=== PATIENT | female | born 1985 | race Caucasian/White ===

== ENCOUNTER 2021-11-28 05:30 | Inpatient (IN) | payer BC ==
[2021-11-28] MEDS: Lactated Ringer's 1,000 ML IV SCH (07:25)
[2021-11-28] MEDS ORDERED: Diphenoxylate HCl/Atropine Tablet PO PRN (07:46)
[2021-11-28] MEDS ORDERED: Ibuprofen 800 MG TAB PO PRN (07:46)
[2021-11-28] MEDS ORDERED: Misoprostol 200 MCG TAB PR PRN (07:46)
[2021-11-28] MEDS ORDERED: HYDROcodone/Acetaminophen 5/325 mg Tablet PO PRN ×2 (07:46)
[2021-11-28] MEDS ORDERED: Methylergonovine 0.2 MG/ML VIAL IM PRN (07:46)
[2021-11-28] MEDS ORDERED: Butorphanol Tartrate 1 MG/ML VIAL SLOW IVP PRN (07:46)
[2021-11-28] MEDS ORDERED: Promethazine HCl 25 MG/ML VIAL IM PRN ×2 (07:46→20:32)
[2021-11-28] MEDS ORDERED: hydrALAZINE 20 MG/ML VIAL SLOW IVP PRN (07:46)
[2021-11-28] MEDS ORDERED: Ondansetron PF 4 MG/2 ML Vial IVP PRN ×2 (07:46→20:32)
[2021-11-28] MEDS ORDERED: Lidocaine 1% (PF) 30 ML VIAL SC PRN (07:46)
[2021-11-28] MEDS ORDERED: Acetaminophen 500 MG TAB PO PRN (07:46)
[2021-11-28 07:59] LABS: Hemoglobin 10.5 g/dL (12.0-15.5); Mean Corpuscular HGB CONC 33.5 g/dL (32.0-36.0); Mean Corpuscular Hemoglobin 29.7 pg (27.0-33.0); Mean Corpuscular Volume 88.4 fl (81.6-98.3); Mean Platelet Volume 12.4 fl (7.4-10.4); Platelet Count 208 10x3/uL (150-450); Red Blood Cell (RBC) Count 3.54 10x6/uL (3.90-5.03); White Blood Cell (WBC) Count 6.7 10x3/uL (3.5-10.5)
[2021-11-28] MEDS ORDERED: NS w/ Oxytocin 30 units 500 ML IV SCH ×2 (08:00)
[2021-11-28] MEDS ORDERED: Bupivacaine 0.25% HCL 30 ML VIAL ONE (08:00)
[2021-11-28] MEDS ORDERED: Misoprostol 100 MCG TAB VAG SCH (08:00)
[2021-11-28 08:27] LABS: HBSAg Index 0.18 S/CO (0-0.99); Hep B Surf Ag Non-Reactive S/CO (NonReactive)
[2021-11-28] MEDS: Misoprostol 100 MCG TAB VAG SCH ×3 (09:59→17:40)
[2021-11-28 13:10] LABS: Syphilis Antibody INDETERMINATE (Nonreactive)
[2021-11-28 18:22] LABS: Glucose 75 mg/dL (70-105)
[2021-11-28] MEDS ORDERED: Fentanyl 2 mcg/Bup 0.1% Cadd 100 ML ONE (20:30)
[2021-11-28] MEDS ORDERED: Moisturizing Cream (Eucerin) 113 GM JAR TOP PRN (20:32)
[2021-11-28] MEDS ORDERED: Lactated Ringer's 500 ML IV PRN (20:32)
[2021-11-28] MEDS ORDERED: Naloxone HCl 0.4 mg/ml Vial IVP PRN ×2 (20:32)
[2021-11-28] MEDS ORDERED: Acetaminophen 325 MG TAB PO PRN (20:32)
[2021-11-28] MEDS ORDERED: diphenhydrAMINE 50 MG/ML VIAL IVP PRN (20:32)
[2021-11-28] MEDS ORDERED: ePHEDrine Sulfate 50 MG/10 ML VIAL SLOW IVP PRN (20:32)
[2021-11-28] MEDS ORDERED: Communication Order-Pharmacy FS SCH (20:45)
[2021-11-28] MEDS: Fentanyl 2 mcg/Bupivacaine 0.1% Cassette 100 ML EPIDURAL SCH (20:50)
[2021-11-29] MEDS: Fentanyl 2 mcg/Bupivacaine 0.1% Cassette 100 ML EPIDURAL SCH ×2 (05:51→13:26)
[2021-11-29] MEDS ORDERED: Fentanyl 2 mcg/Bup 0.1% Cadd 100 ML ONE (13:27)
[2021-11-29] MEDS: Lactated Ringer's 1,000 ML IV SCH ×2 (15:22→23:22)
[2021-11-29] MEDS ORDERED: Misoprostol 200 MCG TAB VAG PRN (19:42)
[2021-11-29] MEDS ORDERED: Methylergonovine 0.2 MG/ML VIAL IM PRN (19:42)
[2021-11-29] MEDS ORDERED: Milk Of Magnesia 30 ML UDCUP PO PRN (19:42)
[2021-11-29] MEDS ORDERED: Ondansetron PF 4 MG/2 ML Vial IVP PRN (19:42)
[2021-11-29] MEDS ORDERED: Lanolin Ointment 7 GM TUBE TOP PRN (19:42)
[2021-11-29] MEDS ORDERED: HYDROcodone/Acetaminophen 5/325 mg Tablet PO PRN (19:42)
[2021-11-29] MEDS ORDERED: NS w/ Oxytocin 30 units 500 ML IV SCH (19:42)
[2021-11-29] MEDS ORDERED: Benzocaine-Menthol 82.5 ML CAN TOP PRN (19:42)
[2021-11-29] MEDS ORDERED: Bisacodyl 10 MG SUPP PR PRN (19:42)
[2021-11-29] MEDS ORDERED: hydrALAZINE 20 MG/ML VIAL SLOW IVP PRN (19:42)
[2021-11-29] MEDS: Ibuprofen 800 MG TAB PO SCH (20:00)
[2021-11-29] MEDS: HYDROcodone/Acetaminophen 5/325 mg Tablet PO PRN (23:19)
[2021-11-29] MEDS: Docusate 100 MG CAP PO SCH (23:20)
[2021-11-30] MEDS: Misoprostol 100 MCG TAB VAG SCH ×3 (00:58→01:00)
[2021-11-30] MEDS: Ibuprofen 800 MG TAB PO SCH ×2 (05:09→13:43)
[2021-11-30] MEDS: Docusate 100 MG CAP PO SCH (08:46)
[2021-11-30] MEDS: Ferrous Sulfate 325 MG TAB PO SCH ×2 (08:47→18:19)
[2021-11-30] MEDS ORDERED: Prenatal Vitamin 1 TAB PO SCH (09:00)
[2021-11-30] MEDS: HYDROcodone/Acetaminophen 5/325 mg Tablet PO PRN ×2 (09:58→15:42)
[2021-11-30 17:32] VITALS: BP 131/87; TEMP 98.4
== END 2021-11-30 19:10 | disposition home or self-care (01) | DRG 807 ==
LOC: CSHLD 05:53 → CSHPP 11-29 21:37
PROVIDERS: ADMIT Obstetrics & Gynecology; ATTEND Obstetrics & Gynecology
PROC: 3E0334Z Introduction of Serum, Toxoid and Vaccine into Peripheral Vein, Percutaneous Approach (ICD-10-PCS; 2021-11-28)
PROC: 3E0P7VZ Introduction of Hormone into Female Reproductive, Via Natural or Artificial Opening (ICD-10-PCS; 2021-11-28)
PROC: 3E033VJ Introduction of Other Hormone into Peripheral Vein, Percutaneous Approach (ICD-10-PCS; 2021-11-28)
PROC: 10E0XZZ Delivery of Products of Conception, External Approach (ICD-10-PCS; principal; 2021-11-29)
PROC: 10907ZC Drainage of Amniotic Fluid, Therapeutic from Products of Conception, Via Natural or Artificial Opening (ICD-10-PCS; 2021-11-29)
PROC: 10H07YZ Insertion of Other Device into Products of Conception, Via Natural or Artificial Opening (ICD-10-PCS; 2021-11-29)
DX: O24.420 Gestational diabetes mellitus in childbirth, diet controlled (principal); Z37.0 Single live birth; Z3A.39 39 weeks gestation of pregnancy; O26.893 Other specified pregnancy related conditions, third trimester; Z67.41 Type O blood, Rh negative; J45.909 Unspecified asthma, uncomplicated; O99.52 Diseases of the respiratory system complicating childbirth; F41.9 Anxiety disorder, unspecified; F32.A Depression, unspecified; F90.9 Attention-deficit hyperactivity disorder, unspecified type; O99.344 Other mental disorders complicating childbirth; K76.0 Fatty (change of) liver, not elsewhere classified; O99.62 Diseases of the digestive system complicating childbirth; Z79.899 Other long term (current) drug therapy; E66.9 Obesity, unspecified; O99.214 Obesity complicating childbirth; O76 Abnormality in fetal heart rate and rhythm complicating labor and delivery; O69.81X0 Labor and delivery complicated by cord around neck, without compression, not applicable or unspecified
CPT/HCPCS: 36415; 51702; 82947; 85027; 86593; 86780; 86850; 86870; 86900; 86901; 87340; J2590; J7120; S0020